=== PATIENT | female | born 1995 | race Caucasian/White ===

== ENCOUNTER 2023-01-11 06:34 | Emergency (ER) | payer OTHER ==
[~2023-01-11] VITALS: Ht 165.1 cm; Wt 77.1 kg
[2023-01-11] MEDS ORDERED: ALBU90OI INH (07:20)
[2023-01-11 08:00] VITALS: BP 104/65
== END 2023-01-11 08:22 | disposition home or self-care (01) ==
LOC: ER 06:34
DX: R51.9 Headache, unspecified (principal); R19.7 Diarrhea, unspecified; Z87.891 Personal history of nicotine dependence
CPT/HCPCS: 99283